=== PATIENT | female | born 2000 | race Caucasian/White ===

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

== ENCOUNTER → 2021-07-10 | Outpatient (CLI) | payer BC ==
[2021-07-10 16:16] LABS: PH-URINE 5.5 (5.0 - 8.0); URINE APPEARANCE CLOUDY; URINE COLOR DARK YELLOW; URINE PROTEIN(semi-quant) 1+ (NEGATIVE)
[2021-07-10 16:17] LABS: URINE BILIRUBIN NEGATIVE (NEGATIVE); URINE BLOOD 50 ery/uL (NEGATIVE); URINE GLUCOSE NEGATIVE (NEGATIVE); URINE KETONE NEGATIVE (NEGATIVE); URINE LEUKOCYTE ESTERASE 2+ (NEGATIVE); URINE NITRATE POSITIVE (NEGATIVE); URINE UROBILINOGEN NORMAL (NORMAL)
[2021-07-10 16:19] LABS: URINE WBC >50 /hpf (0-3)
== END ==
LOC: LAB 12:32
PROVIDERS: Nurse Practitioner Family
DX: R30.9 Painful micturition, unspecified (principal)